=== PATIENT | male | born 1955 | race African-American/Black ===

== ENCOUNTER 2023-07-20 02:44 | Inpatient (IN) | payer MEDICARE, OTHER ==
[~2023-07-20] VITALS: Ht 177.8 cm; Wt 111.3 kg
[2023-07-20] MEDS ORDERED: HEPARIN SODIUM,PORCINE 5,000 UNITS/ML VIAL IVP PRN ×2 (03:15)
[2023-07-20] MEDS ORDERED: HEPARIN SODIUM 25000 UNITS/D5W 250 ML IV PRN (03:15)
[2023-07-20 03:27] LABS: BASOPHILS % (AUTO) 1.2 % (0.0-2.0); EOSINOPHILS % (AUTO) 2.3 % (1.0-6.0); HEMATOCRIT 34.3 % (41-53); HEMOGLOBIN 10.6 g/dL (13.5-17.5); LYMPHOCYTES # (AUTO) 0.9 K/uL (1.0-4.8); LYMPHOCYTES % (AUTO) 17.5 % (22.0-44.0); MEAN CORPUSCULAR HEMOGLOBIN 24.4 pg (26.0-34.0); MEAN CORPUSCULAR HGB CONC 30.9 G/dL (31.0-37.0); MEAN CORPUSCULAR VOLUME 79 fL (80-100); MONOCYTES # (AUTO) 0.9 K/uL (0.1-1.0); MONOCYTES % (AUTO) 19.5 % (2.0-9.0); NEUTROPHILS # (AUTO) 2.9 K/uL (1.8-7.7); NEUTROPHILS % (AUTO) 59.5 % (40.0-70.0); PLATELET COUNT (AUTO) 321 K/uL (150-450); RED BLOOD CELL COUNT(AUTO) 4.33 MIL/uL (4.50-5.90); RED CELL DISTRIBUTION WIDTH 18.1 % (11.5-14.5); WHITE BLOOD COUNT (AUTO) 4.9 K/uL (4.5-11.0)
[2023-07-20] MEDS ORDERED: ATOR20TA65 PO (03:29)
[2023-07-20] MEDS ORDERED: CARV3.1231 PO (03:29)
[2023-07-20] MEDS ORDERED: FAMO20TA8 PO (03:29)
[2023-07-20] MEDS ORDERED: SACU1TAB PO (03:29)
[2023-07-20] MEDS ORDERED: SPIR-37 PO (03:29)
[2023-07-20] MEDS ORDERED: BUME2TAB5 PO (03:29)
[2023-07-20] MEDS ORDERED: BICT1TAB PO (03:31)
[2023-07-20 03:54] LABS: ALCOHOL, URINE DRUG SCREEN NEGATIVE (NEGATIVE); AMPHET/METH SCREEN,URINE POSITIVE (NEGATIVE); BARBITURATE SCREEN, URINE NEGATIVE (NEGATIVE); BENZODIAZEPINES SCREEN,URINE NEGATIVE (NEGATIVE); CANNABINOID SCREEN,URINE NEGATIVE (NEGATIVE); COCAINE SCREEN,URINE NEGATIVE (NEGATIVE); METHADONE SCREEN, URINE NEGATIVE (NEGATIVE); OPIATE SCREEN,URINE NEGATIVE (NEGATIVE); PHENCYCLIDINE SCREEN,URINE NEGATIVE (NEGATIVE)
[2023-07-20 03:55] LABS: ANION GAP 12 mmol/L (8-16); CALCIUM, TOTAL 8.3 mg/dL (8.8-10.5); CARBON DIOXIDE 23 mmol/L (22-29); CHLORIDE 99 mmol/L (98-107); CREATININE 1.18 mg/dL (0.60-1.30); GLOMERULAR FILTR. RATE CALC > 60 mL/min (>60); GLUCOSE,RANDOM 122 mg/dL (70-110); POTASSIUM 5.1 mmol/L (3.5-5.1); SODIUM SERUM 134 mmol/L (136-145); UREA NITROGEN, BLOOD 20 mg/dL (7-18)
[2023-07-20 04:03] LABS: RBC MORPHOLOGY COMMENT ABNORMAL RBC MORPH
[2023-07-20 04:05] LABS: ALANINE AMINOTRANSFERASE 60 U/L (12-78); ALBUMIN 3.2 g/dL (3.4-5.0); ALKALINE PHOSPHATASE 167 U/L (46-116); ASPARTATE AMINOTRANSFERASE 103 U/L (15-37); BILIRUBIN,TOTAL 1.3 mg/dL (0.1-1.0); TOTAL PROTEIN, SERUM 7.9 g/dL (6.4-8.2)
[2023-07-20 04:06] LABS: TROPONIN I-HIGH SENSITIVITY 117 ng/L (<76)
[2023-07-20] MEDS ORDERED: ASPI81TA87 PO (04:06)
[2023-07-20 04:38] LABS: COVID AG,FIA SOURCE NASAL SWAB
[2023-07-20 05:09] LABS: SARS-COV2 (COVID) ANTIGEN,FIA Negative (Negative)
[2023-07-20 05:58] VITALS: BP 104/74; PULSE 105; RESP 20; TEMP 97.9
[2023-07-20 07:48] VITALS: BP 129/73; PULSE 89; RESP 20; TEMP 97.6
[2023-07-20 08:57] LABS: TROPONIN I-HIGH SENSITIVITY 211 ng/L (<76)
[2023-07-20] MEDS: ASPIRIN 81 MG CHEWABLE TABLET PO SCH (09:17)
[2023-07-20] MEDS: CARVEDILOL 3.125 MG TABLET PO SCH ×2 (09:17→21:38)
[2023-07-20] MEDS: BUMETANIDE 0.25 MG/ML 4 ML VIAL IVP SCH (09:18)
[2023-07-20 12:00] VITALS: BP 130/80; PULSE 91; TEMP 97.5
[2023-07-20 18:49] VITALS: BP 128/75; PULSE 85; TEMP 97
[2023-07-20 20:14] VITALS: BP 107/63; PULSE 92; RESP 21; TEMP 98
[2023-07-20 20:30] VITALS: PULSE 84; RESP 18; O2SAT 99
[2023-07-21 00:19] VITALS: BP 129/79; PULSE 85; RESP 21; TEMP 97.8
[2023-07-21 05:08] VITALS: BP 101/70; PULSE 84; RESP 19; TEMP 97.6
[2023-07-21 07:12] LABS: ANION GAP 10 mmol/L (8-16); CALCIUM, TOTAL 8.1 mg/dL (8.8-10.5); CARBON DIOXIDE 21 mmol/L (22-29); CHLORIDE 101 mmol/L (98-107); CREATININE 1.11 mg/dL (0.60-1.30); GLOMERULAR FILTR. RATE CALC > 60 mL/min (>60); GLUCOSE,RANDOM 140 mg/dL (70-110); POTASSIUM 4.7 mmol/L (3.5-5.1); SODIUM SERUM 132 mmol/L (136-145); UREA NITROGEN, BLOOD 24 mg/dL (7-18)
[2023-07-21 07:15] VITALS: BP 112/72; PULSE 91; RESP 18; TEMP 97.8
[2023-07-21 07:25] LABS: TROPONIN I-HIGH SENSITIVITY 272 ng/L (<76)
[2023-07-21] MEDS: BUMETANIDE 0.25 MG/ML 4 ML VIAL IVP SCH (08:55)
[2023-07-21] MEDS: SPIRONOLACTONE 25 MG TABLET PO SCH (08:55)
[2023-07-21] MEDS: ASPIRIN 81 MG CHEWABLE TABLET PO SCH (08:55)
[2023-07-21] MEDS: CARVEDILOL 3.125 MG TABLET PO SCH ×2 (08:56→21:52)
[2023-07-21] MEDS: LOSARTAN POTASSIUM 25 MG TABLET PO SCH (08:58)
[2023-07-21] MEDS ORDERED: LISINOPRIL 10 MG TABLET PO SCH (09:00)
[2023-07-21] MEDS ORDERED: ONDANSETRON HCL 4 MG/2 ML VIAL IVP PRN (12:45)
[2023-07-21] MEDS ORDERED: ACETAMINOPHEN 325 MG TABLET PO PRN (12:45)
[2023-07-21 13:35] VITALS: BP 134/68; PULSE 88; RESP 17; TEMP 97.8
[2023-07-21 16:00] VITALS: BP 126/70; PULSE 82; RESP 18; TEMP 98
[2023-07-21] MEDS ORDERED: HEPARIN SODIUM,PORCINE 5,000 UNITS/ML VIAL SQ SCH (16:00)
[2023-07-21] MEDS: BENZONATATE 100 MG CAPSULE PO SCH ×2 (16:15→21:52)
[2023-07-21] MEDS: HEPARIN SODIUM,PORCINE 5,000 UNITS/ML VIAL SQ SCH ×2 (16:15→23:54)
[2023-07-21 20:00] VITALS: BP 123/85; PULSE 86; RESP 18; TEMP 98.2
[2023-07-21] MEDS: DOCUSATE SODIUM 100 MG CAPSULE PO SCH (21:52)
[2023-07-22] VITALS: BP 107/67; PULSE 82; RESP 18; TEMP 97
[2023-07-22 04:00] VITALS: BP 95/66; PULSE 85; RESP 18; TEMP 98.2
[2023-07-22 06:58] LABS: ANION GAP 7 mmol/L (8-16); CALCIUM, TOTAL 8.7 mg/dL (8.8-10.5); CARBON DIOXIDE 25 mmol/L (22-29); CHLORIDE 99 mmol/L (98-107); CREATININE 1.16 mg/dL (0.60-1.30); GLOMERULAR FILTR. RATE CALC > 60 mL/min (>60); GLUCOSE,RANDOM 105 mg/dL (70-110); POTASSIUM 4.7 mmol/L (3.5-5.1); SODIUM SERUM 131 mmol/L (136-145); UREA NITROGEN, BLOOD 28 mg/dL (7-18)
[2023-07-22 07:02] LABS: BASOPHILS % (AUTO) 0.5 % (0.0-2.0); EOSINOPHILS % (AUTO) 3.3 % (1.0-6.0); HEMATOCRIT 33.3 % (41-53); HEMOGLOBIN 10.7 g/dL (13.5-17.5); LYMPHOCYTES # (AUTO) 0.8 K/uL (1.0-4.8); LYMPHOCYTES % (AUTO) 15.1 % (22.0-44.0); MEAN CORPUSCULAR HEMOGLOBIN 25.2 pg (26.0-34.0); MEAN CORPUSCULAR VOLUME 79 fL (80-100); MONOCYTES # (AUTO) 0.8 K/uL (0.1-1.0); MONOCYTES % (AUTO) 14.9 % (2.0-9.0); NEUTROPHILS # (AUTO) 3.4 K/uL (1.8-7.7); NEUTROPHILS % (AUTO) 66.2 % (40.0-70.0); PLATELET COUNT (AUTO) 328 K/uL (150-450); RED BLOOD CELL COUNT(AUTO) 4.23 MIL/uL (4.50-5.90); RED CELL DISTRIBUTION WIDTH 17.9 % (11.5-14.5); WHITE BLOOD COUNT (AUTO) 5.2 K/uL (4.5-11.0)
[2023-07-22 07:03] LABS: TROPONIN I-HIGH SENSITIVITY 277 ng/L (<76)
[2023-07-22 08:02] VITALS: BP 98/71; PULSE 86; RESP 16; TEMP 98
[2023-07-22] MEDS: DOCUSATE SODIUM 100 MG CAPSULE PO SCH ×2 (08:24→21:00)
[2023-07-22] MEDS: ASPIRIN 81 MG CHEWABLE TABLET PO SCH (08:24)
[2023-07-22] MEDS: FAMOTIDINE 20 MG TABLET PO SCH (08:24)
[2023-07-22] MEDS: BENZONATATE 100 MG CAPSULE PO SCH ×3 (08:25→21:35)
[2023-07-22] MEDS: HEPARIN SODIUM,PORCINE 5,000 UNITS/ML VIAL SQ SCH ×2 (08:26→16:35)
[2023-07-22] MEDS: SPIRONOLACTONE 25 MG TABLET PO SCH (08:26)
[2023-07-22] MEDS: BUMETANIDE 0.25 MG/ML 4 ML VIAL IVP SCH ×2 (08:27→21:35)
[2023-07-22] MEDS: LOSARTAN POTASSIUM 25 MG TABLET PO SCH (08:33)
[2023-07-22] MEDS: CARVEDILOL 3.125 MG TABLET PO SCH ×2 (08:33→21:35)
[2023-07-22 11:45] VITALS: BP_SYST 106; BP_SYST 114; BP_DIAS 63; BP_DIAS 78; PULSE 83; PULSE 87; RESP 18; TEMP 97.5
[2023-07-22 15:31] VITALS: BP 111/73; PULSE 85; RESP 18; TEMP 97.9
[2023-07-22 20:05] VITALS: BP 111/75; PULSE 88; RESP 20; TEMP 98
[2023-07-23] VITALS (8 sets, daily range): BP systolic 99–136; BP diastolic 63–81; PULSE 78–91; RESP 16–20; TEMP 97.3–98.2
[2023-07-23] MEDS ORDERED: BUMETANIDE 0.25 MG/ML 4 ML VIAL IVP ONE
[2023-07-23 00:50] LABS: TROPONIN I-HIGH SENSITIVITY 207 ng/L (<76)
[2023-07-23] MEDS: HEPARIN SODIUM,PORCINE 5,000 UNITS/ML VIAL SQ SCH ×4 (01:16→23:53)
[2023-07-23] MEDS: LOSARTAN POTASSIUM 25 MG TABLET PO SCH (08:35)
[2023-07-23] MEDS: FAMOTIDINE 20 MG TABLET PO SCH (08:35)
[2023-07-23] MEDS: CARVEDILOL 3.125 MG TABLET PO SCH ×2 (08:35→20:58)
[2023-07-23] MEDS: ASPIRIN 81 MG CHEWABLE TABLET PO SCH (08:35)
[2023-07-23] MEDS: DOCUSATE SODIUM 100 MG CAPSULE PO SCH ×2 (08:35→21:03)
[2023-07-23] MEDS: SPIRONOLACTONE 25 MG TABLET PO SCH (08:35)
[2023-07-23] MEDS: BENZONATATE 100 MG CAPSULE PO SCH ×3 (08:35→20:58)
[2023-07-23] MEDS: BUMETANIDE 0.25 MG/ML 4 ML VIAL IVP SCH ×2 (08:36→20:58)
[2023-07-24 03:56] VITALS: BP 108/55; PULSE 77; RESP 19; TEMP 97.7
[2023-07-24 07:13] VITALS: BP 122/72; PULSE 84; RESP 18; TEMP 98
[2023-07-24] MEDS: BENZONATATE 100 MG CAPSULE PO SCH ×3 (08:23→20:55)
[2023-07-24] MEDS: HEPARIN SODIUM,PORCINE 5,000 UNITS/ML VIAL SQ SCH ×3 (08:23→23:58)
[2023-07-24] MEDS: BICTEGRAV/EMTRICIT/TENOFOV ALA 50-200-25 MG TABLET PO SCH (08:23)
[2023-07-24] MEDS: ASPIRIN 81 MG CHEWABLE TABLET PO SCH (08:23)
[2023-07-24] MEDS: SPIRONOLACTONE 25 MG TABLET PO SCH (08:23)
[2023-07-24] MEDS: LOSARTAN POTASSIUM 25 MG TABLET PO SCH (08:24)
[2023-07-24] MEDS: BUMETANIDE 0.25 MG/ML 4 ML VIAL IVP SCH (08:24)
[2023-07-24] MEDS: CARVEDILOL 3.125 MG TABLET PO SCH ×2 (08:24→20:55)
[2023-07-24] MEDS: FAMOTIDINE 20 MG TABLET PO SCH (08:24)
[2023-07-24] MEDS: DOCUSATE SODIUM 100 MG CAPSULE PO SCH ×3 (08:24→21:00)
[2023-07-24 11:38] VITALS: BP 116/68; PULSE 82; RESP 18; TEMP 98
[2023-07-24 17:05] VITALS: BP 102/69; PULSE 81; RESP 18; TEMP 98
[2023-07-24 19:19] VITALS: BP 108/68; PULSE 83; RESP 18; TEMP 98.3
[2023-07-24] MEDS: BUMETANIDE 1 MG TABLET PO SCH (20:55)
[2023-07-24 23:24] VITALS: BP 106/68; PULSE 91; RESP 20; TEMP 98
[2023-07-25 04:02] VITALS: BP 108/56; PULSE 81; RESP 20; TEMP 98.4
[2023-07-25 07:22] VITALS: BP 118/77; RESP 18; TEMP 98
[2023-07-25] MEDS: BICTEGRAV/EMTRICIT/TENOFOV ALA 50-200-25 MG TABLET PO SCH (08:48)
[2023-07-25] MEDS: HEPARIN SODIUM,PORCINE 5,000 UNITS/ML VIAL SQ SCH ×3 (08:48→23:37)
[2023-07-25] MEDS: FAMOTIDINE 20 MG TABLET PO SCH (08:48)
[2023-07-25] MEDS: CARVEDILOL 3.125 MG TABLET PO SCH ×2 (08:49→20:42)
[2023-07-25] MEDS: ASPIRIN 81 MG CHEWABLE TABLET PO SCH (08:49)
[2023-07-25] MEDS: BUMETANIDE 1 MG TABLET PO SCH ×2 (08:49→23:37)
[2023-07-25] MEDS: SPIRONOLACTONE 25 MG TABLET PO SCH (08:49)
[2023-07-25] MEDS: DOCUSATE SODIUM 100 MG CAPSULE PO SCH ×2 (08:49→20:42)
[2023-07-25] MEDS: LOSARTAN POTASSIUM 25 MG TABLET PO SCH (08:49)
[2023-07-25] MEDS: BENZONATATE 100 MG CAPSULE PO SCH ×3 (08:49→20:42)
[2023-07-25 12:00] VITALS: BP 104/60; PULSE 80; RESP 18; TEMP 98
[2023-07-25 15:40] VITALS: BP 116/56; PULSE 84; RESP 18; TEMP 98
[2023-07-25 17:56] VITALS: BP 118/73; PULSE 84; RESP 20; TEMP 97.7
[2023-07-25 20:26] VITALS: BP 136/84; PULSE 96; RESP 20; TEMP 98.7
[2023-07-26 04:46] VITALS: BP 127/68; PULSE 93; RESP 20; TEMP 97.8
[2023-07-26 08:05] VITALS: BP 133/72; PULSE 84; RESP 19; TEMP 98.1
[2023-07-26] MEDS: DOCUSATE SODIUM 100 MG CAPSULE PO SCH (09:10)
[2023-07-26] MEDS: BENZONATATE 100 MG CAPSULE PO SCH (09:10)
[2023-07-26] MEDS: HEPARIN SODIUM,PORCINE 5,000 UNITS/ML VIAL SQ SCH (09:10)
[2023-07-26] MEDS: BICTEGRAV/EMTRICIT/TENOFOV ALA 50-200-25 MG TABLET PO SCH (09:10)
[2023-07-26] MEDS: FAMOTIDINE 20 MG TABLET PO SCH (09:11)
[2023-07-26] MEDS: BUMETANIDE 1 MG TABLET PO SCH (09:11)
[2023-07-26] MEDS: ASPIRIN 81 MG CHEWABLE TABLET PO SCH (09:11)
[2023-07-26] MEDS: CARVEDILOL 3.125 MG TABLET PO SCH (09:11)
[2023-07-26] MEDS: SPIRONOLACTONE 25 MG TABLET PO SCH (09:11)
[2023-07-26] MEDS: LOSARTAN POTASSIUM 25 MG TABLET PO SCH (09:11)
[2023-07-26] MEDS ORDERED: BENZ-227 PO (15:54)
[2023-07-26] MEDS ORDERED: BUME1TAB34 PO (15:55)
[2023-07-26] MEDS ORDERED: CARV3 PO (15:56)
[2023-07-26] MEDS ORDERED: DOCU-385 PO (15:56)
[2023-07-26] MEDS ORDERED: FAMO20 PO (15:57)
[2023-07-26] MEDS ORDERED: HEPA500018 SQ (15:57)
[2023-07-26] MEDS ORDERED: SPIR-37 PO (15:58)
[2023-07-26] MEDS ORDERED: LOSA-381 PO (15:58)
[2023-07-26] MEDS ORDERED: ACET-2247 PO (16:01)
[2023-07-26] MEDS ORDERED: ASPI-1450 PO (16:02)
[2023-07-26 16:11] VITALS: BP 119/83; PULSE 80; RESP 19; TEMP 97.8
== END 2023-07-26 16:55 | DRG 194 ==
LOC: EMS 02:44 → 5S 04:37 → 6S 07-25 17:25
PROVIDERS: ADMIT Internal Medicine; ATTEND Internal Medicine
DX: I11.0 Hypertensive heart disease with heart failure (principal); J96.01 Acute respiratory failure with hypoxia; I21.A1 Myocardial infarction type 2; I42.9 Cardiomyopathy, unspecified; F15.10 Other stimulant abuse, uncomplicated; L03.115 Cellulitis of right lower limb; J44.9 Chronic obstructive pulmonary disease, unspecified; F29 Unspecified psychosis not due to a substance or known physiological condition; Z20.822 Contact with and (suspected) exposure to COVID-19; E66.9 Obesity, unspecified; I50.23 Acute on chronic systolic (congestive) heart failure; G47.33 Obstructive sleep apnea (adult) (pediatric); E78.00 Pure hypercholesterolemia, unspecified; I08.1 Rheumatic disorders of both mitral and tricuspid valves; S91.002A Unspecified open wound, left ankle, initial encounter; X58.XXXA Exposure to other specified factors, initial encounter; Y93.89 Activity, other specified; Y92.89 Other specified places as the place of occurrence of the external cause; Y99.8 Other external cause status; Z95.810 Presence of automatic (implantable) cardiac defibrillator; Z87.891 Personal history of nicotine dependence; Z91.148 Patient's other noncompliance with medication regimen for other reason; Z68.35 Body mass index [BMI] 35.0-35.9, adult; Z79.899 Other long term (current) drug therapy; Z79.82 Long term (current) use of aspirin
CPT/HCPCS: 71045; 80048; 80053; 80307; 83880; 84484; 85025; 85730; 93005; 93306; 97116; 97163; 97166; 97530; 97535; 99285; J1644; J3490; Q9967; 36415-L1; 36415-TC

== ENCOUNTER 2023-08-12 21:43 | Emergency (ER) | payer MEDICARE, OTHER ==
[~2023-08-12] VITALS: Ht 177.8 cm; Wt 120.5 kg
[~2023-08-12 21:43] MED LIST: ACET-2247 PO; ASPI-1450 PO; ATOR20TA65 PO; BENZ-227 PO; BICT1TAB PO; BUME1TAB34 PO; BUME2TAB5 PO; CARV3 PO; CARV3.1231 PO; DOCU-385 PO; FAMO20 PO; FAMO20TA8 PO; HEPA500018 SQ; LOSA-381 PO; SPIR-37 PO
[2023-08-12 23:50] VITALS: BP 122/72; PULSE 56; RESP 20; TEMP 98.5
== END 2023-08-13 01:36 | disposition home or self-care (01) ==
LOC: EMS 21:45
DX: R04.0 Epistaxis (principal); J44.9 Chronic obstructive pulmonary disease, unspecified; E78.00 Pure hypercholesterolemia, unspecified; I11.0 Hypertensive heart disease with heart failure; I50.9 Heart failure, unspecified; F15.90 Other stimulant use, unspecified, uncomplicated; Z98.890 Other specified postprocedural states
CPT/HCPCS: 99283